=== PATIENT | female | born 1960 | race Caucasian/White ===

== ENCOUNTER → 2025-06-13 09:22 | Outpatient (REF) | payer MEDICARE, OTHER, SELFPAY ==
[2025-06-13 10:56] LABS: ALT (SGPT) 26 U/L (0-35); AST (SGOT) 30 U/L (14-36); Albumin 4.6 g/dl (3.5-5.0); Alkaline Phosphatase 97 U/L (38-126); Blood Urea Nitrogen 12 mg/dl (7-17); Calcium 9.7 mg/dl (8.4-10.2); Carbon Dioxide 30 mmol/L (22-30); Chloride 99 mmol/L (98-107); Glucose 94 mg/dl (70-99); HDL Cholesterol 52 mg/dl; LDL Cholesterol, Calculated 205 mg/dl; Potassium 4.3 mmol/L (3.5-5.1); Sodium 137 mmol/L (135-145); Total Protein 7.8 g/dl (6.3-8.2); Very Low Density Lipoprotein 57 mg/dl (0-30); eGFR > 60.00
== END ==
LOC: REG 09:22
PROVIDERS: ATTENDING PHYSICIAN Internal Medicine
DX: R23.9 Unspecified skin changes (principal); E78.00 Pure hypercholesterolemia, unspecified; M17.12 Unilateral primary osteoarthritis, left knee; Z85.3 Personal history of malignant neoplasm of breast
CPT/HCPCS: 36415; 80053; 80061

== ENCOUNTER → 2025-07-26 12:59 | Outpatient (REF) | payer MEDICARE, OTHER, SELFPAY | LOC: REG 12:59 | PROVIDERS: ATTENDING PHYSICIAN Internal Medicine | DX: M94.0 Chondrocostal junction syndrome [Tietze] (principal); R07.89 Other chest pain | CPT/HCPCS: 71046 ==